=== PATIENT | female | born 1940 | race Caucasian/White ===

== ENCOUNTER 2024-06-06 10:40 | Inpatient (IN) | payer MEDICARE ==
[2024-06-06] MEDS ORDERED: Albuterol 2.5 MG (3 mL) NEB ONE (11:49)
[2024-06-06] MEDS ORDERED: Ipratropium/Albuterol 3 ML NEB ONE (11:49)
[2024-06-06 12:36] LABS: Bacteria/HPF None Seen HPF (None Seen); Bilirubin Negative (Negative); Blood, Urine Negative (Negative); CAUTI Indications for Culture Dysuria,urgency,freq; Clarity Clear (Clear); Glucose, Urine (Dipstick) Normal (Negative); Ketone, Urine 10 mg/dL (Negative); Leukocyte 25 Leu/uL (Negative); Nitrite Negative (Negative); Protein, Urine (Dipstick) 30 mg/dL (Neg-Trace); RBC/HPF 0-3 HPF (0-3); Specific Gravity, Urine 1.029 (1.002-1.036); Squamous Epithelial 0-3 HPF (0-3); Urobilinogen Normal mg/dL (Less than 2); pH, Urine 5.5 (5.0-9.0)
[2024-06-06 12:37] LABS: Urine Culture Reflex No No
[2024-06-06 12:53] LABS: #Basophils Less than 0.03 10x3/uL (0.0-0.2); #Eosinophils Less than 0.03 10x3/uL (0.0-0.7); %Basophils 0.1 % (0.0-1.0); %Eosinophils 0.1 % (0.0-10.0); %Lymphocytes 8.2 % (21.0-51.0); %Monocytes 8.7 % (0.0-10.0); %Neutrophils 82.5 % (42.0-75.0); ALT (SGPT) 22 U/L (Less than 34); AST (SGOT) 47 U/L (11-34); Albumin 3.7 g/dL (3.1-4.5); Alkaline Phosphatase 85 U/L (40-110); Anion Gap 12 mmol/L (10-20); BUN (Urea Nitrogen) 23 mg/dL (9.8-20.1); Bilirubin, Total 1.3 mg/dL (0.3-1.2); Calc. Creatinine Clearance 0 mL/min (70-130); Calcium 9.3 mg/dL (7.8-10.44); Carbon Dioxide 26 mmol/L (23-31); Chloride 105 mmol/L (98-107); Estimated GFR 42; Globulin 3.5 g/dL (2.4-3.5); Glucose 104 mg/dL (83-110); Hematocrit 39.2 % (36.0-47.0); Hemoglobin 12.8 g/dL (12.0-16.0); Mean Corpuscular HGB CONC 32.7 g/dL (32.0-36.0); Mean Corpuscular Hemoglobin 30.3 pg (27.0-31.0); Mean Corpuscular Volume 92.9 fL (78.0-98.0); Mean Platelet Volume 11.1 fL (7.4-10.4); Platelet Count 122 10x3/uL (130-400); Protein, Total 7.2 g/dL (5.8-8.1); Red Blood Cell (RBC) Count 4.22 mill/uL (4.20-5.40); Sodium 139 mmol/L (136-145); Troponin I 0.063 ng/mL (< 0.028)
[2024-06-06 12:56] LABS: Burr Cells SLIGHT = 2-5 cells HPF (0-1); Platelet Adequacy Comment Platelets Decreased
[2024-06-06] MEDS ORDERED: Iopamidol-370 76% 500 ML MDV (1 ML CHARGE) ONE (13:17)
[2024-06-06] MEDS ORDERED: cefTRIAXone (ROCEPHIN) 2 GM VIAL ONE (14:34)
[2024-06-06] MEDS ORDERED: Azithromycin 500 MG VIAL ONE (14:34)
[2024-06-06] MEDS ORDERED: Aspirin Chewable 81 MG TAB ONE (14:34)
[2024-06-06] MEDS ORDERED: Furosemide 40 MG (4 mL) VIAL ONE (14:34)
[2024-06-06] MEDS ORDERED: Sodium Chloride 0.9% 100 ML ONE (14:35)
[2024-06-06 16:45] VITALS: BMI 25.7
[2024-06-06] MEDS ORDERED: Ondansetron ODT 4 MG TAB PO PRN (18:34)
[2024-06-06] MEDS ORDERED: Acetaminophen 325 MG TAB PO PRN (18:34)
[2024-06-06] MEDS ORDERED: Senokot S 8.6-50 MG TAB PO PRN (18:34)
[2024-06-06] MEDS ORDERED: Famotidine 20 MG TAB PO PRN (18:36)
[2024-06-06] MEDS ORDERED: Benzonatate 100 MG CAP PO PRN (19:58)
[2024-06-06] MEDS ORDERED: Ipratropium/Albuterol 3 ML NEB EZPAP PRN (19:58)
[2024-06-06 20:04] LABS: Troponin I 0.486 ng/mL (< 0.028)
[2024-06-06 22:02] LABS: Lactic Acid 1.22 mmol/L (0.50-2.20)
[2024-06-06 22:13] LABS: Troponin I 0.944 ng/mL (< 0.028)
[2024-06-06] MEDS: Furosemide 40 MG (4 mL) VIAL SLOW IVP SCH (22:15)
[2024-06-06] MEDS: guaiFENesin 200 MG TAB PO PRN (22:15)
[2024-06-07 02:55] LABS: #Basophils Less than 0.03 10x3/uL (0.0-0.2); #Eosinophils Less than 0.03 10x3/uL (0.0-0.7); %Basophils 0.2 % (0.0-1.0); %Neutrophils 81.6 % (42.0-75.0); Hematocrit 35.2 % (36.0-47.0); Hemoglobin 11.4 g/dL (12.0-16.0); Mean Corpuscular HGB CONC 32.4 g/dL (32.0-36.0); Mean Corpuscular Hemoglobin 30.2 pg (27.0-31.0); Mean Corpuscular Volume 93.4 fL (78.0-98.0); Mean Platelet Volume 11.2 fL (7.4-10.4); Platelet Count 101 10x3/uL (130-400); RBC Distribution Width 13.1 % (11.5-14.5); Red Blood Cell (RBC) Count 3.77 mill/uL (4.20-5.40)
[2024-06-07 03:09] LABS: ALT (SGPT) 50 U/L (Less than 34); AST (SGOT) 85 U/L (11-34); Albumin 3.3 g/dL (3.1-4.5); Alkaline Phosphatase 88 U/L (40-110); Anion Gap 15 mmol/L (10-20); BUN (Urea Nitrogen) 21 mg/dL (9.8-20.1); Bilirubin, Total 0.8 mg/dL (0.3-1.2); Calc. Creatinine Clearance 26 mL/min (70-130); Calcium 8.5 mg/dL (7.8-10.44); Carbon Dioxide 27 mmol/L (23-31); Chloride 98 mmol/L (98-107); Estimated GFR 33; Globulin 3.5 g/dL (2.4-3.5); Glucose 106 mg/dL (83-110); Potassium 3.7 mmol/L (3.5-5.1); Protein, Total 6.8 g/dL (5.8-8.1); Sodium 136 mmol/L (136-145)
[2024-06-07 03:28] LABS: Troponin I 1.321 ng/mL (< 0.028)
[2024-06-07] MEDS: Aspirin 81 mg Enteric Coated Tablet PO SCH (05:07)
[2024-06-07] MEDS ORDERED: Furosemide 20 MG TAB PO SCH (09:00)
[2024-06-07 09:05] LABS: Troponin I 1.244 ng/mL (< 0.028)
[2024-06-07] MEDS: Amlodipine 5 MG TAB PO SCH (09:21)
[2024-06-07] MEDS: Enoxaparin 30 MG (0.3 mL) SYRINGE SC SCH (09:21)
[2024-06-07] MEDS: Metoprolol Succinate XL 50 MG ER.TAB PO SCH (09:21)
[2024-06-07] MEDS: Aspirin 325 mg Enteric Coated Tablet PO SCH (09:22)
[2024-06-07] MEDS: predniSONE 20 MG TAB PO SCH (09:22)
[2024-06-07] MEDS: cefTRIAXone\\ROCEPHIN 1 GM in Sodium Chloride 0.9% 100 ML IVPB SCH (14:57)
[2024-06-07] MEDS: Azithromycin 500 MG in Sodium Chloride 0.9% 250 ML 250 ML IVPB SCH (15:10)
[2024-06-08 05:23] LABS: #Basophils Less than 0.03 10x3/uL (0.0-0.2); #Eosinophils Less than 0.03 10x3/uL (0.0-0.7); %Basophils 0.2 % (0.0-1.0); %Lymphocytes 14.4 % (21.0-51.0); Hematocrit 34.2 % (36.0-47.0); Hemoglobin 11.1 g/dL (12.0-16.0); Mean Corpuscular HGB CONC 32.5 g/dL (32.0-36.0); Mean Corpuscular Hemoglobin 30.2 pg (27.0-31.0); Mean Corpuscular Volume 93.2 fL (78.0-98.0); Mean Platelet Volume 11.5 fL (7.4-10.4); Platelet Count 101 10x3/uL (130-400); Red Blood Cell (RBC) Count 3.67 mill/uL (4.20-5.40)
[2024-06-08 07:25] LABS: Anion Gap 12 mmol/L (10-20); BUN (Urea Nitrogen) 29 mg/dL (9.8-20.1); Calc. Creatinine Clearance 31 mL/min (70-130); Carbon Dioxide 26 mmol/L (23-31); Chloride 99 mmol/L (98-107); Estimated GFR 40; Glucose 99 mg/dL (83-110); Potassium 3.8 mmol/L (3.5-5.1); Sodium 133 mmol/L (136-145)
[2024-06-08] MEDS: Doxycycline 100 MG CAP PO SCH ×2 (11:55→20:20)
[2024-06-08] MEDS: Oseltamivir 6 MG/ML ORAL SUSP PO SCH (13:57)
[2024-06-08] MEDS ORDERED: XYLITOL PO PRN (20:46)
[2024-06-09] MEDS: diphenhydrAMINE 25 MG CAP PO SCH (00:31)
[2024-06-09 04:56] LABS: Anion Gap 11 mmol/L (10-20); BUN (Urea Nitrogen) 30 mg/dL (9.8-20.1); Calc. Creatinine Clearance 34 mL/min (70-130); Calcium 8.9 mg/dL (7.8-10.44); Carbon Dioxide 26 mmol/L (23-31); Chloride 100 mmol/L (98-107); Estimated GFR 48; Glucose 96 mg/dL (83-110); Potassium 4.2 mmol/L (3.5-5.1); Sodium 133 mmol/L (136-145)
[2024-06-09 05:17] LABS: #Basophils Less than 0.03 10x3/uL (0.0-0.2); #Eosinophils Less than 0.03 10x3/uL (0.0-0.7); %Lymphocytes 23.4 % (21.0-51.0); %Monocytes 8.4 % (0.0-10.0); %Neutrophils 67.9 % (42.0-75.0); Hematocrit 39.6 % (36.0-47.0); Hemoglobin 12.5 g/dL (12.0-16.0); Mean Corpuscular HGB CONC 31.6 g/dL (32.0-36.0); Mean Corpuscular Hemoglobin 29.8 pg (27.0-31.0); Mean Corpuscular Volume 94.3 fL (78.0-98.0); Mean Platelet Volume 11.2 fL (7.4-10.4); Platelet Count 107 10x3/uL (130-400); RBC Distribution Width 12.8 % (11.5-14.5)
[2024-06-09] MEDS ORDERED: PREVAGEN 20 MG PO SCH (09:00)
[2024-06-09] MEDS: predniSONE 20 MG TAB PO SCH (09:20)
[2024-06-09 13:06] VITALS: BP 145/74; TEMP 98
[2024-06-09] MEDS ORDERED: Oseltamivir 6 MG/ML ORAL SUSP PO SCH (14:00)
== END 2024-06-09 12:53 | disposition home or self-care (01) | DRG 280 ==
LOC: ERS 10:40 → 2NO 16:31
PROVIDERS: ADMIT Student in an Organized Health Care Education/Training Program; ATTEND Family Medicine
DX: I11.0 Hypertensive heart disease with heart failure (principal); I50.43 Acute on chronic combined systolic (congestive) and diastolic (congestive) heart failure; I21.A1 Myocardial infarction type 2; J10.00 Influenza due to other identified influenza virus with unspecified type of pneumonia; J44.0 Chronic obstructive pulmonary disease with (acute) lower respiratory infection; J44.1 Chronic obstructive pulmonary disease with (acute) exacerbation; R91.8 Other nonspecific abnormal finding of lung field; Z98.891 History of uterine scar from previous surgery; Z90.49 Acquired absence of other specified parts of digestive tract; Z98.890 Other specified postprocedural states; Z79.899 Other long term (current) drug therapy; Z98.49 Cataract extraction status, unspecified eye; Z87.891 Personal history of nicotine dependence
CPT/HCPCS: 36415; 71045; 71275; 80048; 80053; 81001; 83605; 83880; 84484; 85025; 85379; 87040; 87428; 87633; 93005; 93306; 94760; J0456; J0696; J1650; J1940; J7050; J7512; J7611; J7620; Q9967